=== PATIENT | female | born 1950 | race Caucasian/White ===

== ENCOUNTER 2022-07-15 12:39 | Day surgery (SDC) | payer MEDICARE, OTHER ==
[~2022-07-15] VITALS: Ht 162.6 cm; Wt 81.8 kg
[~2022-07-15 12:39] MED LIST: CLONAZEPAM1 MG PO; DILTIAZEM 24HR240 M1 PO; FLAX SEED OIL1 EACH PO; HYDROCIL INSTA1 EACH PO; KLONOPIN0.5 MG PO; LIPITOR10 MG PO; LISINOPRIL20 MG PO; MELATONIN3 M1 PO; OMEPRAZOLE20 MG PO; SYMBYAX 12-501 EACH PO
[2022-07-15] MEDS ORDERED: SPIRONOLACTONE25 MG PO (13:08)
[2022-07-15] MEDS ORDERED: CLONIDINE HCL0.2 MG PO (13:09)
[2022-07-15] MEDS ORDERED: LISINOPRIL20 MG PO (13:10)
[2022-07-15] MEDS ORDERED: OLANZAPINE5 MG PO (13:10)
[2022-07-15] MEDS ORDERED: ATORVASTATIN CA10 MG PO (13:10)
[2022-07-15] MEDS ORDERED: FLUOXETINE HCL40 MG PO (13:11)
--- NOTE | 2022-07-15 15:19 | NUR ---
07/15/22 1519 Sheets,Cora 1514 PT ARRIVED TO PACU ON 2L VIA NC, PT REPORTS CRAMPING IN ABD AND ENCOURAGED TO PASS GAS/AIR. PT VERY DROWSY AND EYES REMAIN CLOSED. 1519 PT PASSING LARGE AMOUNT OF AIR/GAS.
--- NOTE | 2022-07-15 16:31 | NUR ---
JANE 1614 PATIENT BACK TO DAY SURGERY. REPORT RECIEVED FROM SHEETS RN. PATIENT IS DROWSY BUT ORIENTED. PATIENT DENIES ANY PAIN OR DISCOMFORT. BREATHING EQUAL AND UNLABORED. OXYGEN SATURATIONS ABOVE 90% ON ROOM AIR. PATIENT DENIES BEING NAUSEATED. IVF INFUSING. AT BEDSIDE NO QUESTIONS AT THIS TIME. NO FUTHER NEEDS.
--- NOTE | 2022-07-15 17:05 | NUR ---
LE 1655 PATIENT STATES "IM READY TO GO HOME" DISCHARGE INSTRUCTIONS UNDERSTOOD AND AT BEDSIDE TO HEAR. NO QUESTIONS. VITAL SIGNS COMPLETE. PATIENT DENIES ANY PAIN OR BEING NAUSEATED. IV D/C'D WNL. PATIENT WAS WHEELED OUT OF FACILITY TO PRIVATE AUTO.
--- NOTE | 2022-07-16 11:42 | OR ---
[facility] [address] [place], [place] [address] Signed DATE OF OPERATION: 07/15/2022 SURGEON: Salma Betts MD PREOPERATIVE DIAGNOSES: 1. Longstanding gastroesophageal reflux. 2. Colon screening. POSTOPERATIVE DIAGNOSES: 1. Poor flap valve, mild chronic esophagitis and gastritis. 2. Diverticular changes of sigmoid colon. 3. Polyps x2 (excised). PROCEDURES: 1. Total colonoscopy to cecum with cold snare polypectomy x1, cold morcellation polypectomy x1 and biopsy of cecum and rectum. 2. Upper endoscopy with biopsies. ANESTHESIA: Intravenous sedation, fentanyl 175 mcg and Versed 15 mg. INDICATIONS: This 71-year-old white woman is a patient of Hanh Mustafa PA-C and well known to me from the past. She is here to undergo upper endoscopy on the basis of longstanding gastroesophageal reflux as well as colonoscopy for screening. She understands risk of bleeding, infection, and perforation related to colonoscopy and upper endoscopy and wished to proceed. FINDINGS: Upper endoscopy showed mild distal esophagitis. She had a poor flap valve, but no obvious hiatal hernia proper. There was mild antral gastritis, but not severe and certainly no ulcer or neoplasm. CLOtest was negative at 30 minutes post procedure. On colonoscopy, the prep was good. Complete colonoscopy to the right colon was noted with visualization of the cecum, but not full intubation of the cecum. Biopsies were taken of the cecum and the right colon and rectum as there appeared to be a mild low-grade inflammation. There were two polyps, one in the right colon, the other in the sigmoid, both excised, one with cold snare technique with application of hemoclips (right side) and the other excised with cold morcellation technique in the left. Electronically Signed By: SALMA BETTS MD 07/16/22 1142 PATIENT NAME: ABELINO THOMAS OPERATIVE REPORT DATE OF : 54 REPORT #: [id number] PHYSICIAN: SALMA BETTS MD PCP: HANH MUSTAFA PA-C REPORT IS CONFIDENTIAL AND NOT TO BE RELEASED WITHOUT AUTHORIZATION [facility] [address] [place], [place] [address] Signed PROCEDURE IN DETAIL: The patient was brought to the endoscopy suite and placed in lateral decubitus position having undergone topical hypopharyngeal spray anesthesia with lidocaine. A bite block was placed after satisfactory sedation with full cardiopulmonary monitoring. An Olympus video upper endoscope was passed in the hypopharynx. Vocal cords were normal. Scope was passed in the esophagus. Throughout its length it looked reasonably normal, though there was mild inflammation in the distal portion. There was no evidence of stricture. The patient had some complaints of mild dysphagia. It is noted. The scope was advanced to the stomach, which was insufflated with air. Rugal folds were normal. Antrum showed mild inflammation. Pylorus was normal. Scope was passed through into the duodenum, which was normal. Biopsies were taken in the bulbar and second portions to assess for celiac disease. The scope was withdrawn. Biopsies were taken in the antrum for both FOSTER and pathologic testing. Retroflexed view was undertaken showing a somewhat marginal flap valve, but no large hiatal hernia proper. The scope was withdrawn to the distal esophagus where biopsies were obtained and to the midesophagus as well to assess for eosinophilic esophagitis. The scope was then removed. Additional sedation was given. Digital rectal examination was performed. An Olympus video colonoscope passed in the rectum and manipulated throughout the colon and ultimately intubating the right colon. Visualization of the cecum was noted, but passage despite abdominal wall stabilization, scope stiffening, and so forth did not allow for full intubation of the cecum. The ileocecal valve was visualized. Biopsies were taken of the cecum to assess for occult colitis. The scope was withdrawn and in the mid ascending colon was a somewhat flat sessile polyp. This was soft and not particularly worrisome, but was excised with cold snare technique. Given persistent oozing of blood, two hemoclips were applied with good effect. The scope was then withdrawn further and diverticula were noted in the left colon and at about 40 cm from the anal verge a small polyp was noted. This was excised with cold morcellation technique. Further withdrawal allowed for biopsy of the rectum as it did show mild inflammatory change. The scope was removed. The patient was taken to the recovery room in good condition. CONCLUDING DIAGNOSES: 1. No evidence of obvious stricture of the esophagus to account for mild dysphagia; poor flap valve and mild gastritis. 2. Polyps x2, minimal diverticula and low-grade inflammatory changes of colon. PLAN: Would recommend repeat colonoscopy in 5 years. We will assess her biopsy reports before any specific prescriptions related to her findings. Electronically Signed By: SALMA BETTS MD 07/16/22 1142 PATIENT NAME: ABELINO THOMAS OPERATIVE REPORT DATE OF : 54 REPORT #: [id number] PHYSICIAN: SALMA BETTS MD PCP: HANH MUSTAFA PA-C REPORT IS CONFIDENTIAL AND NOT TO BE RELEASED WITHOUT AUTHORIZATION [address] [address] Signed MD DEQUAN Cisneros/MODL /[id number] cc: Hanh Mustafa PA-C Copies: HANH MUSTAFA PA-C ~ Electronically Signed By: SALMA BETTS MD 07/16/22 1142 PATIENT NAME: ABELINO THOMAS OPERATIVE REPORT DATE OF : 54 REPORT #: [id number] PHYSICIAN: SALMA BETTS MD PCP: HANH MUSTAFA PA-C REPORT IS CONFIDENTIAL AND NOT TO BE RELEASED WITHOUT AUTHORIZATION
--- NOTE | 2022-07-22 17:00 | PATH ---
[facility] [address] [place], [place] [address] Signed SPECIMEN(S): A DUODENAL BIOPSY SPECIMEN(S): B ANTRUM/PYLORUS BIOPSY SPECIMEN(S): C LOWER ESOPHAGEAL BIOPSY SPECIMEN(S): D MIDDLE ESOPHAGEAL BIOPSY SPECIMEN(S): E ASCENDING/RIGHT COLON BIOPSY SPECIMEN(S): F ASCENDING/RIGHT COLON POLYP SPECIMEN(S): G COLON POLYP AT 40 CM SPECIMEN(S): H RECTUM SPECIMEN SOURCE: A. DUODENAL BIOPSY B. ANTRUM/PYLORUS BIOPSY C. LOWER ESOPHAGEAL BIOPSY D. MIDDLE ESOPHAGEAL BIOPSY E. ASCENDING/RIGHT COLON BIOPSY F. ASCENDING/RIGHT COLON POLYP G. COLON POLYP AT 40 CM H. RECTUM CLINICAL HISTORY: History of hyperplastic rectal polyp, dysphagia. Postop: Polyps, diverticula, mild inflammation FINAL PATHOLOGIC DIAGNOSIS: A. Duodenum, biopsy: - Benign duodenal mucosa, negative for specific diagnostic abnormality. B. Antrum/pylorus biopsy: - Benign gastric-type mucosa with focal mild chronic inflammation. - Negative for evidence of Helicobacter organisms on routine HE-stained sections. C. Lower esophageal biopsy: - Benign esophageal mucosa, negative for increased epithelial eosinophils. - Negative for glandular mucosa. D. Middle esophageal biopsy: - Benign esophageal mucosa, negative for increased epithelial eosinophils. E. Ascending/right colon biopsy: - Benign colonic mucosa. - Negative for pathologic inflammation, dysplasia, or malignancy. F. Ascending/right colon polyp: - Serrated polyp/adenoma (one fragment). G. Colon polyp at 40 cm: PATIENT NAME: ABELINO SCOTT PATHOLOGY DATE OF : 54 REPORT #: [id number] PHYSICIAN: YARA RUCKER PCP: MONALISA DUONG PA-C REPORT IS CONFIDENTIAL AND NOT TO BE RELEASED WITHOUT AUTHORIZATION [facility] [address] [place], [place] [address] Signed - Hyperplastic polyp (one fragment). H. Rectum, biopsy: - Hyperplastic polyp (one fragment). - Benign colonic mucosa with slight hyperplastic features (two fragments). - Negative for pathologic inflammation. JVR:[id number] MICROSCOPIC EXAMINATION: Histologic sections of all submitted blocks are examined by light microscopy. These findings, together with the gross examination, support the pathologic diagnosis. GROSS DESCRIPTION: Eight specimens are received in eight containers, labeled "Abelino Scott." A. The specimen, labeled " Tyler Abelino, #1," and designated on the requisition "duodenal biopsy," is received in formalin and consists of two blankenship soft tissue fragments that measure 0.2 and 0.5 cm in greatest dimension. The specimen is entirely submitted in cassette (A1). B. The specimen, labeled " Scott Abelino, #2," and designated on the requisition "antrum/pylorus biopsy," is received in formalin and consists of two blankenship soft tissue fragments that measure 0.3 and 0.5 cm in greatest dimension. The specimen is entirely submitted in cassette (B1). C. The specimen, labeled " Abelino Scott, #3," and designated on the requisition "distal lower esophagus biopsy," is received in formalin and consists of two white-blankenship soft tissue fragments that measure 0.3 and 0.4 cm in greatest dimension. The specimen is entirely submitted in cassette (C1). D. The specimen, labeled " Abelino Scott, #4," and designated on the requisition "middle esophagus biopsy," is received in formalin and consists of one white-blankenship soft tissue fragment that measures 0.8 cm in greatest dimension. The specimen is entirely submitted in cassette (D1). E. The specimen, labeled " Abelino Scott, #5," and designated on the requisition "ascending/right colon biopsy," is received in formalin and consists of three blankenship soft tissue fragments that measure 0.2 to 0.3 cm in greatest dimension. The specimen is entirely submitted in cassette (E1). F. The specimen, labeled " Abelino Scott, #6," and designated on the requisition "ascending/right colon polyp," is received in formalin and consists PATIENT NAME: ABELINO SCOTT PATHOLOGY DATE OF : 54 REPORT #: [id number] PHYSICIAN: YARA RUCKER PCP: MONALISA DUONG PA-C REPORT IS CONFIDENTIAL AND NOT TO BE RELEASED WITHOUT AUTHORIZATION [facility] [address] [place] [id number] Signed of one blankenship soft tissue fragment that measures 0.4 cm in greatest dimension. The specimen is entirely submitted in cassette (F1). G. The specimen, labeled " Abelino Scott, #7," and designated on the requisition "colon polyp at 40 cm," is received in formalin and consists of one blankenship soft tissue fragment that measures 0.3 cm in greatest dimension. The specimen is entirely submitted in cassette (G1). H. The specimen, labeled " Abelino Scott, #8," and designated on the requisition "rectum biopsy," is received in formalin and consists of four blankenship soft tissue fragments that measure 0.3 to 0.6 cm in greatest dimension. The specimen is entirely submitted in cassette (H1). FB (under the direct supervision of a pathologist) The Gross Description was prepared using a voice recognition system. The report was reviewed for accuracy; however, sound-alike word errors, addition and/or deletions may occur. If there is any question about this report, please contact Client Services. PERFORMING LABORATORY: The technical component was performed by [employer], [address] [place] [address] (CLIA# [id number]). Diagnostician: Jeff Bacon MD Pathologist Electronically Signed 07/22/2022 Copies: ~ PATIENT NAME: ABELINO SCOTT PATHOLOGY DATE OF : 54 REPORT #: [id number] PHYSICIAN: [employer] [facility] PCP: MONALISA DUONG PA-C REPORT IS CONFIDENTIAL AND NOT TO BE RELEASED WITHOUT AUTHORIZATION
== END 2022-07-15 16:55 | disposition home or self-care (01) ==
LOC: OPS 12:39 → DS 12:40 → OPS 14:00
PROVIDERS: ATTEND Surgery
PROC: 0DB68ZX Excision of Stomach, Via Natural or Artificial Opening Endoscopic, Diagnostic (ICD-10-PCS; 2022-07-15)
PROC: 0DBH8ZZ Excision of Cecum, Via Natural or Artificial Opening Endoscopic (ICD-10-PCS; principal; 2022-07-15 14:00)
PROC: 0DBN8ZZ Excision of Sigmoid Colon, Via Natural or Artificial Opening Endoscopic (ICD-10-PCS; 2022-07-15 14:00)
DX: Z12.11 Encounter for screening for malignant neoplasm of colon (principal); K57.30 Diverticulosis of large intestine without perforation or abscess without bleeding; K20.90 Esophagitis, unspecified without bleeding; K29.50 Unspecified chronic gastritis without bleeding; Z86.010 Personal history of colon polyps; C44.91 Basal cell carcinoma of skin, unspecified; D12.2 Benign neoplasm of ascending colon
CPT/HCPCS: 88305; 99153; G0500; J2250; J3010; J7121